=== PATIENT | female | born 1980 | race American Indian/Alaskan Native ===

== ENCOUNTER 2018-11-16 14:23 | Outpatient (CLI) | payer BC, OTHER | END 2018-11-16 14:24 | disposition home or self-care (01) | LOC: LABHHL 14:23 | PROVIDERS: ATTEND Surgery | DX: N60.01 Solitary cyst of right breast (principal) | CPT/HCPCS: 88112 ==

== ENCOUNTER 2021-03-04 09:08 | Outpatient (CLI) | payer BC ==
--- NOTE | 2021-03-04 16:22 | Mammography Report ---
DIGITAL SCREENING MAMMOGRAM WITH TOMOSYNTHESIS WITH CAD, 03/04/2021 CLINICAL INFORMATION / INDICATION: Routine Screening Mammography. TECHNIQUE: Digital bilateral 2D and 3D mammography with tomosynthesis was obtained in the craniocaud al and mediolateral oblique projections. Computer-Aided Detection (CAD) analysis was used for interp retation of this study. COMPARISON: 11/14/2019, 02/19/2018 FINDINGS: Breast Density: The breasts are extremely dense, which lowers the sensitivity of mammography. No new dominant mass, suspicious calcifications, or architectural distortion in either breast. Generalized bilateral nodularity/masses and benign-appearing calcifications have not significantly ch anged. A biopsy clip is again seen along the upper outer left breast. No other significant interval c hanges. IMPRESSION: No mammographic evidence of malignancy. Follow up recommendation: Routine yearly BI-RADS Category 2: Benign. A "normal" or negative report should not discourage follow up or biopsy of a clinically significant f inding. A written summary of these findings will be mailed to the patient. The patient will be entered into a mammography reporting system which will generate a reminder letter for the patient's next appointmen t at the appropriate interval. The [employer] recommends yearly mammograms starting at age 40 and continuing as l sol as a woman is in good health. Breast MRI is recommended for women with an approximate 20-25% or greater lifetime risk of breast cancer, including women with a strong family history of breast or ova marie cancer or who have been treated for Hodgkin's disease. Signer Name: Watson Cook MD Signed: 03/04/2021 4:17 PM Workstation Name: [id number]
== END 2021-03-04 09:09 | disposition home or self-care (01) ==
LOC: SPVWC 09:08
PROVIDERS: ATTEND Surgery
DX: Z12.31 Encounter for screening mammogram for malignant neoplasm of breast (principal); N64.89 Other specified disorders of breast
CPT/HCPCS: 77063; 77067